=== PATIENT | female | born 1935 | race Caucasian/White ===

== ENCOUNTER → 2021-01-05 | Outpatient (CLI) | payer MEDICARE, BC ==
[~2021-01-05] MED LIST: AMLO5 PO; CHOL10002; CITA20 PO; ESTROVEN 155 M155 MG PO; FLAX PO; LOSA50; Omeprazole20 M1
== END ==
LOC: LAB 14:48 → LAB SHORT 14:48
DX: D48.5 Neoplasm of uncertain behavior of skin (principal)
CPT/HCPCS: 88305